=== PATIENT | female | born 1980 ===

== ENCOUNTER 2020-09-07 08:00 | Inpatient (IN) | payer OTHER ==
[~2020-09-07] VITALS: Ht 152.4 cm; Wt 56.7 kg
[2020-09-17] MEDS ORDERED: FAMOTIDINE20 MG PO (08:08)
[2020-09-17] MEDS ORDERED: IBUPROFEN600 MG PO (08:08)
[2020-09-17] MEDS ORDERED: CODE1TAB37 PO (08:08)
[2020-09-17] MEDS ORDERED: CEFUROXIME250 MG PO (08:09)
== END 2020-09-17 08:52 | disposition home or self-care (01) | DRG 983 ==
LOC: OB/GYN 09-14 08:00 → O/R 09-14 12:07 → OB/GYN 09-14 18:41
PROVIDERS: Obstetrics & Gynecology Gynecologic Oncology; Urology; ADMIT Obstetrics & Gynecology; ATTEND Obstetrics & Gynecology
PROC: 0UT70ZZ Resection of Bilateral Fallopian Tubes, Open Approach (ICD-10-PCS; 2020-09-14)
PROC: 0UT20ZZ Resection of Bilateral Ovaries, Open Approach (ICD-10-PCS; 2020-09-14)
PROC: 0TJB8ZZ Inspection of Bladder, Via Natural or Artificial Opening Endoscopic (ICD-10-PCS; 2020-09-14)
PROC: 0UT90ZZ Resection of Uterus, Open Approach (ICD-10-PCS; principal; 2020-09-14 12:00)
PROC: 0UNF0ZZ Release Cul-de-sac, Open Approach (ICD-10-PCS; 2020-09-14 12:00)
PROC: 0UTC0ZZ Resection of Cervix, Open Approach (ICD-10-PCS; 2020-09-14 12:00)
PROC: 30233N1 Transfusion of Nonautologous Red Blood Cells into Peripheral Vein, Percutaneous Approach (ICD-10-PCS; 2020-09-15)
DX: N80.5 Endometriosis of intestine (principal); N80.0 Endometriosis of uterus; N83.291 Other ovarian cyst, right side; N73.6 Female pelvic peritoneal adhesions (postinfective); D64.9 Anemia, unspecified; Z20.822 Contact with and (suspected) exposure to COVID-19